=== PATIENT | female | born 2000 | race African-American/Black ===

== ENCOUNTER 2021-07-19 21:33 | Emergency (ER) | payer SELFPAY ==
--- NOTE | 2021-07-19 22:14 | ER ---
Nurse's Notes [facility] Name: Rohit Golden Age: 20 yrs Sex: Female : 2000 Arrival Date: 07/19/2021 Time: 21:34 Bed 6 Private MD: Diagnosis: Ring or other jewelry causing external constriction, initial encounter Presentation: 07/19 21:58 Chief complaint: Patient states: "i have a ring stuck of my finger.". Coronavirus tw5 screen: Vaccine status: Patient reports being unvaccinated. Ebola Screen: Patient negative for fever greater than or equal to 101.5 degrees Fahrenheit, and additional compatible Ebola Virus Disease symptoms Patient denies exposure to infectious person. No symptoms or risks identified at this time. Initial Sepsis Screen: Does the patient meet any 2 criteria? No. Patient's initial sepsis screen is negative. Does the patient have a suspected source of infection? No. Patient's initial sepsis screen is negative. Risk Assessment: Do you want to hurt yourself or someone else? Patient reports no desire to harm self or others. Onset of symptoms was July 19, 2021 at 18:00. 21:58 Method Of Arrival: Ambulatory tw5 21:58 Acuity: STEVO 4 tw5 Triage Assessment: 22:00 General: Appears uncomfortable, Behavior is calm, cooperative, appropriate for age. tw5 Pain: Complains of pain in dorsal aspect of middle phalanx of right index finger and dorsal aspect of proximal phalanx of right index finger Pain currently is 10 out of 10 on a pain scale. 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 - Social history:: Smoking status: Patient denies any tobacco usage or history of. Screenin:02 Abuse screen: Denies threats or abuse. Denies injuries from another. Nutritional tw5 screening: No deficits noted. Tuberculosis screening: No symptoms or risk factors identified. Fall Risk None identified. Assessment: 22:01 General: Appears uncomfortable, Behavior is calm, cooperative, appropriate for age. tw5 Cardiovascular: No deficits noted. Respiratory: No deficits noted. Vital Signs: 21:58 Resp 18; Temp 98.5; Weight 95.25 kg; Height 5 ft. 2 in. (157.48 cm); Pain 10/10; tw5 22:01 BP 131 / 88; Pulse 95; Resp 18; Pulse Ox 100% ; tw5 21:58 Body Mass Index 38.41 (95.25 kg, 157.48 cm) tw5 ED Course: 21:34 Patient arrived in ED. ms3 21:35 Rasta Emerson PA is PHCP. terry 21:35 Keenan Romero DO is Attending Physician. terry 21:36 Jessica Chavez, ZULEIKA is Primary Nurse. ke1 22:00 Triage completed. tw5 22:00 Arm band placed on left wrist. tw5 22:01 Patient has correct armband on for positive identification. Placed in gown. Bed in low tw5 position. Call light in reach. Adult w/ patient. Pulse ox on. NIBP on. Door closed. Warm blanket given. 22:18 No provider procedures requiring assistance completed. Patient did not have IV access tw5 during this emergency room visit. 22:18 ring cut. tw5 Administered Medications: No medications were administered Medication: 22:18 VIS not applicable for this client. tw5 Outcome: 22:13 Discharge ordered by . [facility] 22:18 Discharged to home tw5 22:18 Condition: improved 22:18 Discharge instructions given to patient, Instructed on discharge instructions, follow up and referral plans. 22:18 Patient left the ED. tw5 Signatures: Rasta Emerson PA PA [facility] Keenan Romero DO DO ms3 Kayla Jackson tw5 Jessica Chavez, ZULEIKA RN ke1 Corrections: (The following items were deleted from the chart) 22:00 22:00 PMHx: None; tw5 tw5
--- NOTE | 2021-07-19 22:14 | EDPHYS ---
Physician Documentation [facility] Name: Rohit Golden Age: 20 yrs Sex: Female : 2000 Arrival Date: 07/19/2021 Time: 21:34 Bed 6 Private MD: ED Physician Keenan Romero HPI: 07/19 22:12 This 20 yrs old Black Female presents to ER via Ambulatory with complaints of right 2nd.jmm 22:12 Onset: The symptoms/episode began/occurred acutely, today. jmm 22:12 This is a 20 year old female with a history of dm that presents ot the ED with jmm complaints of right 2nd finger ring which is stuck. Denies numbness. . 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 - Social history:: Smoking status: Patient denies any tobacco usage or history of. ROS: 22:12 Constitutional: Negative for fever, chills, and weight loss, Cardiovascular: Negative jmm for chest pain, palpitations, and edema, Respiratory: Negative for shortness of breath, cough, wheezing, and pleuritic chest pain, Abdomen/GI: Negative for abdominal pain, nausea, vomiting, diarrhea, and constipation. 22:12 MS/extremity: Positive for pain. 22:12 All other systems are negative. Exam: 22:12 Constitutional: This is a well developed, well nourished patient who is awake, alert, jmm and in no acute distress. Head/Face: atraumatic. Eyes: EOMI, no conjunctival erythema appreciated ENT: Moist Mucus Membranes Neck: Trachea midline, Supple Chest/axilla: Normal chest wall appearance and motion. Cardiovascular: Regular rate and rhythm. No edema appreciated Respiratory: Normal respirations, no respiratory distress appreciated Abdomen/GI: Non distended, soft Back: Normal ROM Skin: General appearance color normal 22:12 Musculoskeletal/extremity: ring noted to the right 2nd finger, < 2 sec cap refill, FROM, NVI. 22:12 Skin: Appearance: Color: normal in color. 22:12 Neuro: Orientation: is normal, Mentation: is normal, Memory: is normal. 22:12 Psych: Behavior/mood is pleasant, cooperative. Vital Signs: 21:58 Resp 18; Temp 98.5; Weight 95.25 kg; Height 5 ft. 2 in. (157.48 cm); Pain 10/10; tw5 22:01 BP 131 / 88; Pulse 95; Resp 18; Pulse Ox 100% ; tw5 21:58 Body Mass Index 38.41 (95.25 kg, 157.48 cm) tw5 Procedures: 23:07 Performed ring removal. Trauma shear used to cut the ring. Patient tolerated this well. hansel . MDM: 22:05 Patient medically screened. [facility] 22:12 Data reviewed: vital signs, nurses notes. Counseling: I had a detailed discussion with terry the patient and/or guardian regarding: the historical points, exam findings, and any diagnostic results supporting the discharge/admit diagnosis, the need for outpatient follow up, to return to the emergency department if symptoms worsen or persist or if there are any questions or concerns that arise at home. Administered Medications: No medications were administered Disposition: 07/20 06:58 Co-signature as Attending Physician, Keenan Romero DO I was immediately available on-site ms3 in the Emergency Department for consultation in the care of the patient.. Disposition Summary: 07/19/21 22:13 Discharge Ordered Location: Home [facility] Condition: Stable [facility] Diagnosis - Ring or other jewelry causing external constriction, initial encounter [facility] Followup: [facility] - With: Private Physician - When: As needed - Reason: Recheck today's complaints, Continuance of care, Re-evaluation by your physician Forms: - Medication Reconciliation Form [facility] - Thank You Letter [facility] - Antibiotic Education jmm - Prescription Opioid Use [facility] Signatures: Rasta Emerson PA PA jmm Sims, Marcus, DO DO ms3 Mabel Jacksony tw5 Corrections: (The following items were deleted from the chart) 07/19 22:00 22:00 PMHx: None; tw5 tw5
[2021-07-19 22:33] VITALS: TEMP 98.5
[2021-07-19 22:34] VITALS: BP 131/88; O2SAT 100
== END 2021-07-19 22:18 | disposition home or self-care (01) ==
LOC: ER 21:33
DX: S60.440A External constriction of right index finger, initial encounter (principal); E11.9 Type 2 diabetes mellitus without complications
CPT/HCPCS: 99283